=== PATIENT | female | born 1975 | race Hispanic/Latino ===

== ENCOUNTER 2020-01-15 04:46 | Emergency (ER) | payer BC ==
[2020-01-15] MEDS ORDERED: Fentanyl 100 MCG/2 ML VIAL ONE ×3 (05:00→06:24)
[2020-01-15] MEDS ORDERED: Orphenadrine Citrate 60 MG/2 ML VIAL IM SCH (05:15)
--- NOTE | 2020-01-15 08:29 | RAD ---
LEFT SHOULDER 2 VIEWS: DATE: 01/15/2020 HISTORY: Left upper extremity injury. FINDINGS: Humeral head appears normally positioned. AC joint normally aligned. There is a fracture involving the proximal diaphysis of the humerus with slight displacement. This ap pears to represent a spiral-type fracture. IMPRESSION: Fracture proximal humeral diaphysis. POS: AGW
--- NOTE | 2020-01-15 08:29 | RAD ---
LEFT HUMERUS 1 VIEW: Date: 01/15/2020 INDICATION: Injury with pain. FINDINGS/IMPRESSION: There is a spiral-type fracture involving the proximal humeral diaphysis with mild displacement. POS: AGW
== END 2020-01-15 08:54 | disposition home or self-care (01) ==
LOC: ERS 04:46
DX: S42.302A Unspecified fracture of shaft of humerus, left arm, initial encounter for closed fracture (principal); W10.9XXA Fall (on) (from) unspecified stairs and steps, initial encounter
CPT/HCPCS: 29105; 96372; 96374; 96376; J2360; J3010